=== PATIENT | female | born 1955 | race Caucasian/White ===

== ENCOUNTER → 2017-03-27 | Outpatient (CLI) | payer OTHER, BC ==
[~2017-03-27] MED LIST: CHOL100010 PO; CLTP PO; CYAN10005 PO; CYTM25 PO; FRRG PO; LEVO150T22 PO; LISI-461 PO; OXYC1TAB3 PO
[2017-03-27 15:55] LABS: SYNOVIAL FLUID APPEARANCE CLEAR; SYNOVIAL FLUID COLOR STRAW
== END | disposition home or self-care (01) ==
LOC: C.LAB 13:43
DX: T84.039A Mechanical loosening of unspecified internal prosthetic joint, initial encounter (principal); X58.XXXA Exposure to other specified factors, initial encounter